=== PATIENT | male | born 1960 | race Caucasian/White ===

== ENCOUNTER 2018-09-13 10:37 | Outpatient (CLI) | payer OTHER, SELFPAY ==
[2018-09-13 11:42] LABS: Hemoglobin A1C 9.7 % (4.5-6.2)
[2018-09-13 12:58] LABS: ALT 142 U/L (12-78); AST 144 U/L (15-37); Alkaline Phosphatase 134 U/L (46-116); Anion Gap 9.4 mmol/L (3-11); BUN 10 mg/dL (7-18); Bilirubin, Total 0.9 mg/dL (0.2-1.0); CO2 29.6 mmol/L (21.0-32.0); CREATININE 0.97 mg/dL (0.70-1.30); Calcium 8.9 mg/dL (8.5-10.1); Chloride 95 mmol/L (98-107); Cholesterol 225 mg/dL (50-200); Glucose 263 mg/dL (70-100); HDL Cholesterol 55 mg/dL (40-60); LDL CHOLESTEROL 142 mg/dL (<100); Sodium 134 mmol/L (136-145); Total Protein 8.5 g/dL (6.4-8.2); Triglyceride 141 mg/dL (30-150)
[2018-09-14 10:37] LABS: Hepatitis C Ab w Rflx HCV PCR Negative (NEGAT)
== END 2018-09-13 10:57 ==
PROVIDERS: PCP Family Medicine; Visit Provider Family Medicine
DX: Z00.00 Encounter for general adult medical examination without abnormal findings (principal); E11.9 Type 2 diabetes mellitus without complications; Z13.220 Encounter for screening for lipoid disorders; Z11.59 Encounter for screening for other viral diseases
CPT/HCPCS: 36415; 80053; 80061; 83721; 86803; 83036

== ENCOUNTER 2018-10-26 02:47 | Emergency (ER) | payer OTHER, SELFPAY ==
[2018-10-26] VITALS (18 sets, daily range): BP systolic 147–173; BP diastolic 74–91; PULSE 76–91; RESP 11–16; TEMP 37.3; O2SAT 93–97
--- NOTE | 2018-10-26 02:48 | W.ED.GENAD ---
Discharge Plan Disposition Patient Disposition: HOME Condition: Stable Discharge Details Chief Complaint: Palpitatns Clinical Impression: Palpitations Primary Care Provider: David Foster ED Provider: Luis Fernández Home Meds and New Rx's Prescriptions: No Action metformin 500 mg tablet 500 mg PO BID Qty: 180 RF: 4 lovastatin 40 mg tablet 40 mg PO DAILY Qty: 90 RF: 4 aspirin [Adult Low Dose Aspirin] 81 mg tablet,delayed release (DR/EC) 81 mg PO DAILY Qty: 90 RF: 4 amlodipine [Norvasc] 5 mg tablet 5 mg PO QAM Qty: 90 RF: 4 benazepril [Lotensin] 20 mg tablet 20 mg PO QAM Qty: 90 RF: 4 Discharge Instructions Instructions: Palpitations (ED) Additional Instructions: Your lab work showed your liver function tests and glucose level were elevated similar as they have in the past. You should let your primary care provider know of this when you follow up and also have your blood pressure when you follow up with your primary care provider. You should follow up with them in 1-2 weeks if you have severe chest pain or difficulty breathing return to the emergency department for reevaluation Medical Decision Making 57 yo male with hx of htn, t2dm, hld, fomer smoker, drinker of 6-8 shots a day per pt, who comes in with chief complaint of feeling as though his heart is skipping beats. HE states he has had this symptom intermittently for a few weeks, and tonight for about 3 horus. Denies any pain, sob, fevers, chills. He denies any hx of cad. HE is in no distress on exam in NSR on the monitor. Given lack of pain doubt acs, heart score is 3 based on age and risk factors, will send troponin and obtain ecg. Given lack of pain, no evidence of dvt, no significant tachycardia doubt entities such as PE or dissection and also has no tearing back pain. Will monitor and eval for electrolyte abnormalities as well pt's labs show no acute changes, has chronic mild elevation of lfts likely from alcohol use and glucose in the 200's, advised he needs to f/u with pcp regarding this and BP initially 170, now 140, I did also recommend he have his BP rechecked by his pcp in 1-2 weeks. Given symptoms over 4 hours do not feel repeat troponin indicated and pain not consistent with acs. He had occasional pac on the tele and was stating during this he felt a skipped beat so I suspect this is what he is feeling. He will f/u with his pcp and return precautions given Differential Diagnosis pvc's, afib, electrolyte abnormalities Lab Data Lab results reviewed: Yes I reviewed the patient's lab results. ECG Data Attestation: I personally reviewed and interpreted this ECG (s) as follows: Prior ECG tracings: not available for review Interpretation: sinus rhythm, rate of 86, pr 176, no acute ischemic findings HPI General Mode of arrival: ambulatory. Date/Time Provider Initiated Documentation: 10/26/18 02:48. Limitations to Documentation: no limitations. Information obtained by: patient. History of Present Illness 57 year old M presents to the emergency department with the chief complaint of feels heart skipping beats, described as mild, with intensity rated at 2. Patient reports no radiation. Patient started experiencing this hour(s) (3) and it has been intermittent. No relieving factors improve symptom(s), No exacerbating factors reported . Patient notes no other symptoms.. Patient did receive the following treatments prior to arrival, none Related Data Home Medications Medication Instructions Recorded Confirmed amlodipine 5 mg tablet 5 mg PO QAM #90 tab-cap 07/15/18 10/26/18 benazepril 20 mg tablet 20 mg PO QAM #90 tab-cap 07/15/18 10/26/18 aspirin 81 mg tablet,delayed 81 mg PO DAILY #90 tab 09/16/18 10/26/18 release lovastatin 40 mg tablet 40 mg PO DAILY #90 tab-cap 09/16/18 10/26/18 metformin 500 mg tablet 500 mg PO BID #180 tab 09/16/18 10/26/18 Previous Rx's Medication Instructions Recorded amlodipine 5 mg tablet 5 mg PO QAM #90 tab-cap 07/15/18 benazepril 20 mg tablet 20 mg PO QAM #90 tab-cap 07/15/18 aspirin 81 mg tablet,delayed 81 mg PO DAILY #90 tab 09/16/18 release lovastatin 40 mg tablet 40 mg PO DAILY #90 tab-cap 09/16/18 metformin 500 mg tablet 500 mg PO BID #180 tab 09/16/18 Allergies Allergy/AdvReac Type Severity Reaction Status Date / Time oxycodone Allergy Intermediate ITCHING Unverified 10/26/18 02:56 Review of Systems Review of Systems All systems reviewed & are unremarkable except as noted in HPI and below Constitutional Denies chills and Denies fever(s) Cardiovascular Denies dyspnea Respiratory Denies cough and Denies dyspnea Gastrointestinal Denies abdominal pain, Denies nausea and Denies vomiting Musculoskeletal Denies joint swelling Integumentary/Breasts Denies rash Endocrine Denies heat intolerance PFSH Surgical History Colonoscopy - MAC LEFT KNEE SURGERY MUSCLE REATTACHMENT Repair of inguinal hernia Family History Mother Essential hypertension Diabetes Father Heart disease Grandfather Diabetes Sister Diabetes Social History caregiver/support person: Yes household members: significant other housing: house pets and animals: No sexually active: Yes do you think of yourself as: straight/heterosexual current gender identity: male what type of physical activity do you participate in: walking frequency: 3-4 times per week duration: 15-30 minutes/day Smoking and Tabacco status: Former Tobacco Use quit status: quit date established second hand exposure: Yes alcohol intake: current alcohol intake frequency: 3 or more drinks per day Alcohol type: beer and hard liquor substance use type: former substance user and marijuana chaparro/yazidi: Religion What is your relationship status?: How often do you talk on the phone with friends or family?: three or more times per week How often do you get together with friends or relatives?: twice per week How often do you attend sabianism or rastafari services?: decline to answer Do you belong to any clubs or organized social groups?: yes Panel score (0-1 are the most socially isolated patients): 2 Exam Const General: no acute distress Orientation: alert HENMT Head: normal to inspection Ears: external ears normal General nose exam: external nose normal Mouth: moist mucous membranes Eyes General: appearance normal, both eyes and all related structures Neck Neck: normal visual inspection Resp Effort & Inspection: normal respiratory effort and able to speak in complete sentences Cardio Rate: regular rate Skin General skin exam: no rashes or lesions noted Neuro General: alert and oriented x3 Extrem General: normal to inspection Psych Mental Status: mental status grossly normal
--- NOTE | 2018-10-26 02:59 | ED.GENADUL_ITS ---
Discharge Plan Disposition Patient Disposition: HOME Condition: Stable Discharge Details Chief Complaint: Palpitatns Clinical Impression: Palpitations Primary Care Provider: David Foster ED Provider: Luis Fernández Home Meds and New Rx's Prescriptions: No Action metformin 500 mg tablet 500 mg PO BID Qty: 180 RF: 4 lovastatin 40 mg tablet 40 mg PO DAILY Qty: 90 RF: 4 aspirin [Adult Low Dose Aspirin] 81 mg tablet,delayed release (DR/EC) 81 mg PO DAILY Qty: 90 RF: 4 amlodipine [Norvasc] 5 mg tablet 5 mg PO QAM Qty: 90 RF: 4 benazepril [Lotensin] 20 mg tablet 20 mg PO QAM Qty: 90 RF: 4 Discharge Instructions Instructions: Palpitations (ED) Additional Instructions: Your lab work showed your liver function tests and glucose level were elevated similar as they have in the past. You should let your primary care provider know of this when you follow up and also have your blood pressure when you follow up with your primary care provider. You should follow up with them in 1-2 weeks if you have severe chest pain or difficulty breathing return to the emergency department for reevaluation Medical Decision Making 57 yo male with hx of htn, t2dm, hld, fomer smoker, drinker of 6-8 shots a day per pt, who comes in with chief complaint of feeling as though his heart is skipping beats. HE states he has had this symptom intermittently for a few weeks, and tonight for about 3 horus. Denies any pain, sob, fevers, chills. He denies any hx of cad. HE is in no distress on exam in NSR on the monitor. Given lack of pain doubt acs, heart score is 3 based on age and risk factors, will send troponin and obtain ecg. Given lack of pain, no evidence of dvt, no significant tachycardia doubt entities such as PE or dissection and also has no tearing back pain. Will monitor and eval for electrolyte abnormalities as well pt's labs show no acute changes, has chronic mild elevation of lfts likely from alcohol use and glucose in the 200's, advised he needs to f/u with pcp regarding this and BP initially 170, now 140, I did also recommend he have his BP rechecked by his pcp in 1-2 weeks. Given symptoms over 4 hours do not feel repeat troponin indicated and pain not consistent with acs. He had occasional pac on the tele and was stating during this he felt a skipped beat so I suspect this is what he is feeling. He will f/u with his pcp and return precautions shakeel cabral Differential Diagnosis pvc's, afib, electrolyte abnormalities Lab Data Lab results reviewed: Yes I reviewed the patient's lab results. ECG Data Attestation: I personally reviewed and interpreted this ECG (s) as follows: Prior ECG tracings: not available for review Interpretation: sinus rhythm, rate of 86, pr 176, no acute ischemic findings HPI General Mode of arrival: ambulatory . Date/Time Provider Initiated Documentation: 10/26/18 02:48 . Limitations to Documentation: no limitations . Information obtained by: patient . History of Present Illness 57 year old M presents to the emergency department with the chief complaint of feels heart skipping beats, described as mild, with intensity rated at 2. Patient reports no radiation. Patient started experiencing this hour(s) (3) and it has been intermittent. No relieving factors improve symptom(s), No exacerbating factors reported . Patient notes no other symptoms.. Patient did receive the following treatments prior to arrival, none Related Data Home Medications Medication Instructions Recorded Confirmed amlodipine 5 mg tablet 5 mg PO QAM #90 tab-cap 07/15/18 10/26/18 benazepril 20 mg tablet 20 mg PO QAM #90 tab-cap 07/15/18 10/26/18 aspirin 81 mg tablet,delayed 81 mg PO DAILY #90 tab 09/16/18 10/26/18 release lovastatin 40 mg tablet 40 mg PO DAILY #90 tab-cap 09/16/18 10/26/18 metformin 500 mg tablet 500 mg PO BID #180 tab 09/16/18 10/26/18 Previous Rx's Medication Instructions Recorded amlodipine 5 mg tablet 5 mg PO QAM #90 tab-cap 07/15/18 benazepril 20 mg tablet 20 mg PO QAM #90 tab-cap 07/15/18 aspirin 81 mg tablet,delayed 81 mg PO DAILY #90 tab 09/16/18 release lovastatin 40 mg tablet 40 mg PO DAILY #90 tab-cap 09/16/18 metformin 500 mg tablet 500 mg PO BID #180 tab 09/16/18 Allergies Allergy/AdvReac Type Severity Reaction Status Date / Time oxycodone Allergy Intermediate ITCHING Unverified 10/26/18 02:56 Review of Systems Review of Systems All systems reviewed & are unremarkable except as noted in HPI and below Constitutional Denies chills and Denies fever(s) Cardiovascular Denies dyspnea Respiratory Denies cough and Denies dyspnea Gastrointestinal Denies abdominal pain, Denies nausea and Denies vomiting Musculoskeletal Denies joint swelling Integumentary/Breasts Denies rash Endocrine Denies heat intolerance PFSH Surgical History Colonoscopy - MAC LEFT KNEE SURGERY MUSCLE REATTACHMENT Repair of inguinal hernia Family History Mother Essential hypertension Diabetes Father Heart disease Grandfather Diabetes Sister Diabetes Social History caregiver/support person: Yes household members: significant other housing: house pets and animals: No sexually active: Yes do you think of yourself as: straight/heterosexual current gender identity: male what type of physical activity do you participate in: walking frequency: 3-4 times per week duration: 15-30 minutes/day Smoking and Tabacco status: Former Tobacco Use quit status: quit date established second hand exposure: Yes alcohol intake: current alcohol intake frequency: 3 or more drinks per day Alcohol type: beer and hard liquor substance use type: former substance user and marijuana chaparro/temple: Voodoo What is your relationship status?: How often do you talk on the phone with friends or family?: three or more times per week How often do you get together with friends or relatives?: twice per week How often do you attend spiritism or congregation services?: decline to answer Do you belong to any clubs or organized social groups?: yes Panel score (0-1 are the most socially isolated patients): 2 Exam Const General: no acute distress Orientation: alert HENMT Head: normal to inspection Ears: external ears normal General nose exam: external nose normal Mouth: moist mucous membranes Eyes General: appearance normal, both eyes and all related structures Neck Neck: normal visual inspection Resp Effort & Inspection: normal respiratory effort and able to speak in complete sentences Cardio Rate: regular rate Skin General skin exam: no rashes or lesions noted Neuro General: alert and oriented x3 Extrem General: normal to inspection Psych Mental Status: mental status grossly normal
[2018-10-26 03:29] LABS: Abs Immature Grans 0.01 k/cumm (0.0-0.09); Absolute Basophil Count 0.04 k/cumm (0.0-0.2); Absolute Eosinophil Count 0.11 k/cumm (0.0-0.7); Absolute Lymphocyte Count 2.88 k/cumm (1.2-3.4); Absolute Monocyte Count 0.61 k/cumm (0.11-0.7); Absolute Neutrophil Count 3.68 k/cumm (1.2-6.7); Basophils % 0.5; Eosinophils % 1.5; HCT 43.2 % (40.0-50.0); HGB 14.8 g/dL (13.5-17.5); Immature Grans % 0.1; Lymphocytes % 39.3; Mean Corp. HGB Concentration 34.3 g/dL (32.0-36.0); Mean Corpuscular Volume 90.4 fL (80-95); Mean Platelet Volume 11.3 fL (8.0-11.0); Monocytes % 8.3; Neutrophils % 50.3; Platelet Count 192 x1000/uL (130-400); RBC 4.78 m/cumm (4.50-6.00); RBC Distribution Width 12.7 % (11.8-14.1); White Blood Cell Count 7.33 k/cumm (4.4-10.8)
[2018-10-26 03:55] LABS: ALT 90 U/L (12-78); AST 111 U/L (15-37); Albumin 3.9 g/dL (3.4-5.0); Alkaline Phosphatase 136 U/L (46-116); Anion Gap 9.3 mmol/L (3-11); BUN 8 mg/dL (7-18); Bilirubin, Total 0.7 mg/dL (0.2-1.0); CO2 28.7 mmol/L (21.0-32.0); Calcium 9.8 mg/dL (8.5-10.1); Chloride 96 mmol/L (98-107); Glucose 267 mg/dL (70-100); Magnesium 1.9 mg/dL (1.8-2.4); Sodium 134 mmol/L (136-145); Total Protein 8.7 g/dL (6.4-8.2)
[2018-10-26 04:04] LABS: ETHANOL BLOOD < 3.0 mg/dL (<3); Troponin I < 0.02 ng/mL (0.00-0.06)
== END 2018-10-26 04:25 | disposition home or self-care (01) ==
PROVIDERS: Emergency Provider Emergency Medicine; PCP Family Medicine
DX: R00.2 Palpitations (principal); E11.9 Type 2 diabetes mellitus without complications; Z79.84 Long term (current) use of oral hypoglycemic drugs; I10 Essential (primary) hypertension
CPT/HCPCS: 36415; 80053; 93005; 99284; 80320; 83735; 84484; 85025; 93010

== ENCOUNTER 2018-11-07 02:06 | Outpatient (CLI) | payer OTHER, SELFPAY ==
--- NOTE | 2018-11-14 10:21 | HOLTER_ITS ---
DATE OF DICTATION: November 14, 2018 HOLTER MONITOR REPORT 48-hour study. Baseline rhythm sinus. Very frequent single PAC. Seven bursts of SVT, longest 3-beat duration, fastest 215 bpm. No atrial fibrillation. Rare single PVC. Rare couplet. Rare triplet. No VT. No bradycardia. No symptoms. Average heart rate 95 bpm, range 67-156 bpm.
== END 2018-11-07 02:26 ==
PROVIDERS: PCP Family Medicine; Visit Provider Family Medicine
DX: R00.2 Palpitations (principal); I49.1 Atrial premature depolarization; I47.1 Supraventricular tachycardia
CPT/HCPCS: 93225

== ENCOUNTER 2018-11-11 16:31 | Outpatient (CLI) | payer OTHER, SELFPAY | END 2018-11-11 16:51 | PROVIDERS: PCP Family Medicine; Visit Provider Family Medicine | DX: R00.2 Palpitations (principal); I49.1 Atrial premature depolarization; I47.1 Supraventricular tachycardia | CPT/HCPCS: 93226 ==

== ENCOUNTER 2018-12-14 11:18 | Outpatient (CLI) | payer OTHER, SELFPAY ==
[2018-12-14 12:36] LABS: Hemoglobin A1C 9.2 % (4.5-6.2)
== END 2018-12-14 11:38 ==
PROVIDERS: PCP Family Medicine; Visit Provider Family Medicine
DX: E11.9 Type 2 diabetes mellitus without complications (principal)
CPT/HCPCS: 36415; 83036

== ENCOUNTER 2018-12-23 02:18 | Outpatient (CLI) | payer OTHER, SELFPAY ==
--- NOTE | 2018-12-23 14:03 | DIABASSESS_ITS ---
DESCRIPTION/ASSESSMENT: Raymond Walker presents for medical nutrition therapy for diabetes. He was diagnosed 1 1/2 years ago but last A1c 9.7 now at 9.2. Strong family history of diabetes. Food - Javy has cut back on all food eating 1/2 portions and attempting to avoid sugar. He is not sure what to eat. States he lost 14 pounds over the past year. 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 He admits to inactivity evenings and weekends because of the weather. Will increase activity when the weather improves. He also has a plan to get weights upstairs to begin lifting them again. States he drinks 4-6 alcoholic beverages daily. Medication - Metformin just doubled. No other diabetes medications. Monitoring - fasting some days in the 150s. He tested 1 hour after 1 serving chicken noodle soup with blood sugar 235mg/dl Coping - denies depression symptoms but admits to high stress with work that affects his quality of life. INTERVENTION: Discussed early, intensive intervention for best manager terminal results. Explained A1c goal of less than 7. Reviewed diabetes food guide. He cannot go without carbohydrate and discussed keeping it below 100g/day. Reviewed lower glycemic index food choices. Discussed physical activity. Discussed intention to get weights upstairs and physical activity being his new intervention to decrease blood sugar. Medication discussed and he wishes to see what Metformin will do with lifestyle changes. Monitoring - suggested he monitor before each meal and bedtime over the weekend to see what different foods impact blood sugar. Stress management - states he is doing everything he can and there is nothing that will make it better. States it has gotten a little better since he is letting some of it go. He also states he wakes up a couple times every night. ACTION PLAN: He will look at carbohydrate at meals attempting 30 grams per meal Monitor this weekend before each meal and bedtime get out his weights We will follow up by telephone in next 2 weeks. Individual MNT ___4_ units billed TIME IN: OUT: No DM group education series being offered at this time.
== END 2018-12-23 02:38 ==
PROVIDERS: PCP Family Medicine; Visit Provider Dietitian, Registered
DX: E11.9 Type 2 diabetes mellitus without complications (principal); Z79.84 Long term (current) use of oral hypoglycemic drugs; Z71.3 Dietary counseling and surveillance
CPT/HCPCS: 97802

== ENCOUNTER 2019-03-07 08:53 | Outpatient (CLI) | payer OTHER, SELFPAY | END 2019-03-07 09:13 | PROVIDERS: PCP Family Medicine; Visit Provider Family Medicine | DX: R69 Illness, unspecified (principal) ==

== ENCOUNTER 2020-01-05 01:33 | Outpatient (CLI) | payer OTHER, SELFPAY ==
[2020-01-05 10:41] LABS: Hemoglobin A1C 6.1 % (3.8-5.6)
[2020-01-05 11:36] LABS: ALT 37 U/L (16-63); AST 28 U/L (15-37); Albumin 4.4 g/dL (3.4-5.0); Alkaline Phosphatase 102 U/L (46-116); Anion Gap 7.5 mmol/L (3-11); BUN 12 mg/dL (7-18); Bilirubin, Total 0.6 mg/dL (0.2-1.0); CO2 29.5 mmol/L (21.0-32.0); CREATININE 0.91 mg/dL (0.70-1.30); Calcium 9.8 mg/dL (8.5-10.1); Chloride 99 mmol/L (98-107); Glucose 67 mg/dL (74-106); Sodium 136 mmol/L (136-145); Total Protein 8.6 g/dL (6.4-8.2)
== END 2020-01-05 01:53 ==
PROVIDERS: PCP Family Medicine; Visit Provider Family Medicine
DX: E11.9 Type 2 diabetes mellitus without complications (principal); I10 Essential (primary) hypertension; Z00.00 Encounter for general adult medical examination without abnormal findings
CPT/HCPCS: 36415; 80053; 83036

== ENCOUNTER 2020-09-12 02:56 | Outpatient (CLI) | payer MEDICAID, SELFPAY ==
--- NOTE | 2020-09-12 06:45 | DI.RAD_ITS ---
EXAM: XR SHOULDER LT COMPLETE 2+V CLINICAL HISTORY: left shoulder pain,M25.512. TECHNIQUE: 2D digital imaging was performed. COMPARISON: No exams were available for comparison FINDINGS: Moderate hypertrophic changes are seen at the acromioclavicular joint consistent with arthritis. The glenohumeral joint is well maintained. The bones are intact and normally mineralized. The soft tis sues are unremarkable. IMPRESSION: Moderate degenerative changes of the left AC joint. DATA REPOSITORY: RADIATION DOSE DELIVERED:
== END 2020-09-12 03:16 ==
PROVIDERS: PCP Family Medicine; Visit Provider Family Medicine
DX: M19.012 Primary osteoarthritis, left shoulder (principal)
CPT/HCPCS: 73030

== ENCOUNTER 2020-11-29 03:23 | Outpatient (CLI) | payer MEDICAID, SELFPAY ==
--- NOTE | 2020-11-29 06:45 | DI.MRI_ITS ---
EXAM: MR UPPER JOINT LT WO CLINICAL HISTORY: PAIN,ARTHRITIS LT AC JOINT,LT BICEPS TENDONITIS,IMPINGEMENT SYNDROME,. TECHNIQUE: Multiplanar multisequence MRI was performed. COMPARISON: CR XR SHOULDER LT COMPLETE 2+V from 09/12/2020 FINDINGS: BONES: There is no fracture or contusion pattern. JOINTS: Moderate hypertrophic changes are seen at the acromioclavicular joint. The glenohumeral join t is normal. No glenohumeral joint effusion. TENDONS: Supraspinatus: Hyperintense signal is seen at the supraspinatus tendon at its insertion site anterior ly consistent with a tear. There is also hyperintense signal seen in the proximal tendons suggestive of a tear. Infraspinatus: Unremarkable. Subscapularis: There is hyperintense signal seen in the subscapularis tendon at its insertion suspici ous for partial tear. Teres Minor: Unremarkable. Biceps and Hampton: Unremarkable. MUSCLES: Unremarkable. GLENOID LABRUM: Unremarkable on this noncontrast examination. SOFT TISSUES: Unremarkable. LIGAMENTS: Unremarkable. OTHER: Subacromial and subdeltoid bursae are unremarkable. IMPRESSION: 1. Findings consistent with a partial supraspinatus tear. 2. Findings of a partial tear of the subscapularis tendon. 3. Moderate degenerative changes of the acromioclavicular joint. DATA REPOSITORY:
== END 2020-11-29 03:43 ==
PROVIDERS: PCP Family Medicine; Visit Provider Student in an Organized Health Care Education/Training Program
DX: M25.512 Pain in left shoulder (principal); M75.112 Incomplete rotator cuff tear or rupture of left shoulder, not specified as traumatic; S46.892A Other injury of other muscles, fascia and tendons at shoulder and upper arm level, left arm, initial encounter; M19.012 Primary osteoarthritis, left shoulder; M75.22 Bicipital tendinitis, left shoulder; M75.42 Impingement syndrome of left shoulder
CPT/HCPCS: 73221

== ENCOUNTER 2021-01-24 00:33 | Outpatient (CLI) | payer MEDICAID, SELFPAY ==
[2021-01-24 12:54] LABS: CREATININE 0.9 mg/dL (0.70-1.30); Calculated LDL 107 mg/dL (<100); Cholesterol 173 mg/dL (<200); HDL Cholesterol 41 mg/dL (40-60); Potassium 4.2 mmol/L (3.5-5.1); Triglyceride 127 mg/dL (<150)
[2021-01-24 13:02] LABS: Hemoglobin A1C 7.1 % (<5.7)
== END 2021-01-24 00:34 | disposition home or self-care (01) ==
LOC: LOS 00:34
PROVIDERS: PCP Family Medicine; Visit Provider Family Medicine
DX: E11.65 Type 2 diabetes mellitus with hyperglycemia (principal); E78.5 Hyperlipidemia, unspecified; I10 Essential (primary) hypertension
CPT/HCPCS: 36415; 80061; 82565; 83036; 84132

== ENCOUNTER 2021-02-05 07:22 | Outpatient (CLI) | payer MEDICAID, SELFPAY ==
[2021-02-05 17:17] LABS: PSA, Screening 0.6 ng/mL (0.0-4.5)
[2021-02-06 11:15] LABS: Lyme Ab w Rflx to Lyme Confirm Negative (Negative)
== END 2021-02-05 07:23 | disposition home or self-care (01) ==
LOC: LOS 07:29
PROVIDERS: PCP Family Medicine; Visit Provider Family Medicine
DX: Z12.5 Encounter for screening for malignant neoplasm of prostate (principal); M25.512 Pain in left shoulder
CPT/HCPCS: 36415; 84153; 86618

== ENCOUNTER 2021-02-05 18:12 | Outpatient (CLI) | payer MEDICAID, SELFPAY ==
--- NOTE | 2021-02-05 09:28 | DI.RAD_ITS ---
Exam(s) XR CERVICAL SPINE COMP 4-5V EXAM: XR CERVICAL SPINE COMP 4-5V CLINICAL HISTORY: neck pain with arm symptoms,M54.2. TECHNIQUE: 2D digital imaging was performed. COMPARISON: No exams were available for comparison FINDINGS: There is no evidence of fracture or listhesis nor offset of the spinal laminar line. Chronic disc sp wilman narrowing at C5-6 and C6-7 levels are noted. Prominent anterior osteophytes at C5-6. On the obl ique views there are prominent bilateral Luschka joint osteophytes at both C5-6 and C6-7 levels. Marichuy ral foraminal narrowing at both these levels bilaterally noted. There are no cervical ribs. Multile shad degenerative changes in the facet joints noted. IMPRESSION: Chronic degenerative disc disease in the lower cervical spine. Also prominent bilateral Luschka join t osteophytes at the lower 2 levels with bilateral foraminal stenosis. DATA REPOSITORY: RADIATION DOSE DELIVERED:
== END 2021-02-05 18:32 ==
PROVIDERS: PCP Family Medicine; Visit Provider Family Medicine
DX: M48.02 Spinal stenosis, cervical region (principal); M50.322 Other cervical disc degeneration at C5-C6 level; M25.78 Osteophyte, vertebrae
CPT/HCPCS: 72050

== ENCOUNTER 2021-02-12 09:19 | Outpatient (REF) | payer MEDICAID, SELFPAY ==
--- NOTE | 2021-02-12 08:45 | TONG_PTH ---
PATIENT: Raymond Walker JR LOC: [facility] U#:[id number] AGE/SX: 60/M ROOM: RE02/12/[address]: ASHLEY Neville : 1960 BED: DIS: 02/12/2021 SPEC #: [id number] RECD: 02/12/21 17:51 STATUS: COREY REQ #: [id number] SHANNAN: 02/12/21 08:[address]: Fer Soares DEPT: Surgical Specimen RECD BY: Soraya Calabrese ENTERED: 02/12/21 17:52 SP TYPE: JAMA MARCOS DR: Constantin Nair MD Tissues: 1 - TONSIL BIOPSY Procedures: GROSS AND MICRO LEVEL 4 Comments: [id number]
== END 2021-02-12 09:20 | disposition home or self-care (01) ==
LOC: LBN 09:19
PROVIDERS: PCP Family Medicine; Visit Provider Physician Assistant
DX: K14.8 Other diseases of tongue; F17.228 Nicotine dependence, chewing tobacco, with other nicotine-induced disorders
CPT/HCPCS: 88305

== ENCOUNTER 2021-02-19 01:27 | Outpatient (CLI) | payer MEDICAID, SELFPAY ==
--- NOTE | 2021-02-19 07:15 | DI.MRI_ITS ---
Exam(s) MR CERVICAL SPINE WO EXAM: MR CERVICAL SPINE WO CLINICAL HISTORY: neck pain with rt arm radicular pain, M54.2 TECHNIQUE: Multiplanar multisequence MRI of the cervical spine was performed without intravenous con trast. COMPARISON: CR XR CERVICAL SPINE COMP 4-5V from 02/05/2021 CR XR CERVICAL SPINE COMP 4-5V from 02/05/2021 FINDINGS: CERVICOMEDULLARY JUNCTION: Intact with no evidence of cerebellar tonsillar ectopia. No obvious abnor mality of the odontoid process. No evidence of Chiari 1 malformation. CERVICAL SPINAL CORD: There is no abnormal signal in the cervical spinal cord and no evidence of foca l cord atrophy nor focal cord swelling. OSSEOUS:There are no cervical fractures evident. No significant osseous lesions in the cervical vert ebrae. There is slight reversal of the normal cervical curvature, this finding similar to the recent plain films of 02/06/2020 INDIVIDUAL LEVELS: C2-3: No disc herniation nor central canal stenosis. No foraminal stenosis. No facet arthropathy. C3-4: Preserved disc height. However, there is mild symmetrical annular bulging without a dominant d isc herniation at this level.There is moderate bilateral facet arthropathy. Also small bilateral Denice chka joint osteophytes. Mild bilateral foraminal stenosis. No true central canal stenosis. C4-5: Normal disc height and signal. No disc herniation. No central canal stenosis. No foraminal s tenosis. No prominent facet arthropathy C5-6: This level exhibits moderate disc space narrowing and anterior osteophytes. Posteriorly broad annula r bulging without a distinct disc herniation. There are bilateral Luschka joint osteophytes at this l evel which are causing mild spinal canal stenosis bilaterally. The bulging annulus sys flattens the a nterior thecal sac but not the spinal cord. Central canal dimensions are lower normal. C6-7: Moderate-advanced disc space narrowing also evident at this level and small anterior osteophyte s. Posteriorly there are bilateral disc-osteophyte complexes which results in an element of bilatera l neural foraminal stenosis, this being more prominent on the left side . on the left side there is a disc protrusion associated with the Luschka joint osteophyte at the level of the exiting left neural foramen; smaller similar findings in the right side. Central canal dimensions are lower normal at t his level. C7-T1: No disc herniation nor central canal stenosis. Mild facet arthropathyno foraminal stenosis. IMPRESSION: 1. Findings at C3-4, C 5-6, and C6-7 levels as described individually above. 2. There is no prominent central spinal canal stenosis. Main findings here are related to bilateral foraminal stenosis, as described above. The cervical spinal cord itself appears unremarkable and the re is no evidence of Chiari malformation/cerebellar tonsillar ectopia. 3. Reversal of the normal curvature of the cervical spine is noted which is due to chronic muscle spa sm DATA REPOSITORY:
== END 2021-02-19 01:47 ==
PROVIDERS: PCP Family Medicine; Visit Provider Family Medicine
DX: M48.03 Spinal stenosis, cervicothoracic region (principal); M62.838 Other muscle spasm
CPT/HCPCS: 72141

== ENCOUNTER 2021-05-02 10:24 | Outpatient (CLI) | payer MEDICAID, SELFPAY ==
--- NOTE | 2021-05-02 10:15 | RT.EKG_ITS ---
APPROVED REPORT Exam: Resting ECG Reason for Exam: pre op Patient Location: O HR:74 bpm ECG Measurements Heart Rate 74 AXIS MN 177 P 62 QRSd 98 QRS 5 QT 410 T 40 QTc 456 Conclusion Sinus rhythm...normal P axis, V-rate 60- 99
== END 2021-05-02 10:25 | disposition home or self-care (01) ==
LOC: DI.CM 10:25
PROVIDERS: PCP Family Medicine; Visit Provider Family Medicine
DX: Z01.818 Encounter for other preprocedural examination (principal)
CPT/HCPCS: 93010

== ENCOUNTER 2021-05-23 09:11 | Outpatient (REF) | payer MEDICAID, SELFPAY ==
[2021-05-24 01:29] LABS: COVID-19 RT-PCR UVMMC Result Negative (Negative)
== END 2021-05-23 09:12 | disposition home or self-care (01) ==
LOC: LBN 09:11
PROVIDERS: PCP Family Medicine; Visit Provider Nurse Practitioner Family
DX: Z20.822 Contact with and (suspected) exposure to COVID-19 (principal); Z01.818 Encounter for other preprocedural examination
CPT/HCPCS: 87635; U0003

== ENCOUNTER 2021-06-27 02:20 | Outpatient (CLI) | payer MEDICAID, SELFPAY ==
--- NOTE | 2021-06-27 09:18 | DI.RAD_ITS ---
Exam(s) XR CERVICAL SPINE 1V EXAM: XR CERVICAL SPINE 1V CLINICAL HISTORY: S/P CERVICAL SPINAL FUSION Z98.1. TECHNIQUE: 2D digital imaging was performed. Lateral view only COMPARISON: CR XR CERVICAL SPINE COMP 4-5V from 02/05/2021 CR XR CERVICAL SPINE COMP 4-5V from 02/05/2021 MR MR CERVICAL SPINE WO from 02/19/2021 FINDINGS: There has been interval anterior fusion from C5 through C7. Stable degenerative changes are seen at the more superior levels. No prevertebral soft tissue swelling. IMPRESSION: Status post anterior fusion C5 through C7. DATA REPOSITORY: RADIATION DOSE DELIVERED:
== END 2021-06-27 02:40 ==
PROVIDERS: PCP Family Medicine; Visit Provider Physician Assistant Medical
DX: M54.2 Cervicalgia (principal); Z98.1 Arthrodesis status
CPT/HCPCS: 72020

== ENCOUNTER 2021-08-20 00:15 | Outpatient (CLI) | payer MEDICAID, SELFPAY ==
--- NOTE | 2021-08-20 | DI.RAD_ITS ---
Exam(s) XR CERVICAL SP ARROYO TRAUMA 2-3V EXAM: XR CERVICAL SP ARROYO TRAUMA 2-3V CLINICAL HISTORY: S/P CERVICAL SPINAL FUSION Z98.1. TECHNIQUE: 2D digital imaging was performed. COMPARISON: CR XR CERVICAL SPINE 1V from 06/27/2021 FINDINGS: Again noted is evidence of previous surgery with anterior fusion plate at B3N0-3-4 levels and interve rtebral disc space divide ower XXXX at these levels. There is no evidence of fracture or significant listhesis. Hardware appears intact. Disc space 1 level above the fusion exhibits normal height. N o listhesis. No facet malalignment No osseous lesions. No offset of the spinal laminar line. Degenerative facet arthropathy noted, mos t evident at C2-3 level. IMPRESSION: DATA REPOSITORY: RADIATION DOSE DELIVERED:
== END 2021-08-20 00:35 ==
PROVIDERS: PCP Family Medicine; Visit Provider Neurological Surgery
DX: Z98.1 Arthrodesis status (principal); Z98.890 Other specified postprocedural states
CPT/HCPCS: 72040

== ENCOUNTER → 2021-09-24 09:46 | Outpatient (CLI) | payer MEDICAID, SELFPAY ==
--- NOTE | 2021-09-24 07:45 | DI.RAD_ITS ---
Exam(s) XR SACRUM COCCYX EXAM: XR SACRUM COCCYX CLINICAL HISTORY: coccyx pain,m53.3. TECHNIQUE: 2D digital imaging was performed. COMPARISON: No exams were available for comparison FINDINGS: BONES: No acute fracture is present. No bony destructive lesion is seen. No abnormalities seen invol ving the coccyx. JOINTS: No dislocation present. Minimal spurring and sclerosis at the SI joints, within normal limits for age. Hip joint spaces are well maintained. SOFT TISSUE: Metallic coils related to hernia repair. IMPRESSION: Unremarkable radiographs of the sacrum and coccyx. DATA REPOSITORY: RADIATION DOSE DELIVERED:
== END ==
PROVIDERS: PCP Family Medicine; Visit Provider Family Medicine
DX: M53.3 Sacrococcygeal disorders, not elsewhere classified (principal)
CPT/HCPCS: 72220

== ENCOUNTER 2022-03-04 02:39 | Outpatient (CLI) | payer MEDICAID, SELFPAY ==
[2022-03-04 16:34] LABS: CREATININE 1.3 mg/dL (0.70-1.30); Calculated LDL 54 mg/dL (<100); Cholesterol 161 mg/dL (<200); Estimated GFR 55.94 (mL/min/1.73m2); HDL Cholesterol 35 mg/dL (40-60); Potassium 4.1 mmol/L (3.5-5.1); Triglyceride 361 mg/dL (<150)
[2022-03-04 22:38] LABS: PSA, Screening 0.8 ng/mL (<=4.5)
== END 2022-03-04 02:40 | disposition home or self-care (01) ==
LOC: LBO 02:39
PROVIDERS: PCP Family Medicine; Visit Provider Family Medicine
DX: I10 Essential (primary) hypertension (principal); E78.5 Hyperlipidemia, unspecified; Z12.5 Encounter for screening for malignant neoplasm of prostate
CPT/HCPCS: 36415; 80061; 84153; 82565; 84132

== ENCOUNTER 2022-04-01 08:13 | Day surgery (SDC) | payer MEDICAID, SELFPAY ==
--- NOTE | 2022-04-01 06:35 | W.ANESPRE ---
General Info Date of Service Date Performed: 04/01/22 Height: 5 ft 9 in Weight: 88.451 kg Body Mass Index (BMI): 28.8 Surgical Procedure: Operation Date: 04/01/22 09:50 Proposed Procedure Side Surgeon flower Freire MD Meds Allergies and Home Medications Allergies Allergy/AdvReac Type Severity Reaction Status Date / Time oxycodone Allergy Intermediate ITCHING Verified 04/01/22 08:38 Home Medication Medication Instructions Recorded blood-glucose meter (OneTouch #1 ea 03/10/19 Ultra2 Meter kit) lancets 33 gauge (OneTouch Delica #100 ea 03/10/19 Lancets) sildenafil (pulm.hypertension) 20 20 - 100 mg PO DAILY PRN sexual 10/10/21 mg tablet activity #30 tabs metformin 500 mg tablet 1,000 mg PO BID #360 tabs 11/05/21 amlodipine 5 mg tablet (Norvasc) 10 mg PO QAM #90 tab-caps 11/22/21 benazepril 20 mg tablet (Lotensin) 20 mg PO QAM #90 tab-caps 11/22/21 lovastatin 40 mg tablet 40 mg PO DAILY #90 tab-caps 11/22/21 blood sugar diagnostic #100 ea 12/12/21 gabapentin 600 mg tablet 600 mg PO TID #90 tabs 12/24/21 tadalafil 20 mg tablet 20 mg PO DAILY PRN sexual activity 02/05/22 #10 tabs bisacodyl 5 mg tablet,delayed 5 mg PO ONCE #4 tabs 03/19/22 release (Dulcolax (bisacodyl)) hydrochlorothiazide 12.5 mg tablet 6.25 mg PO DAILY 03/19/22 polyethylene glycol 3350 17 17 g PO ONCE #238 grams 03/19/22 gram/dose oral powder Current Visit Medications: Current Medications Generic Name Dose Route Start Last Admin Trade Name Freq PRN Reason Stop Dose Admin Ringer's Solution 1,000 mls @ 80 mls/hr 04/01/22 06:00 IV 04/30/22 23:59 INFUSION AKI IV Miscellaneous Supplies 1 each 04/01/22 06:00 Iv Access IV 04/30/22 23:59 DIRECTED AKI Sodium Chloride 0 ml 04/01/22 06:00 Normal Saline Flush 10 Ml Syr IV 04/30/22 23:59 PRN PRN Sodium Chloride 0 ml 04/01/22 06:00 Normal Saline 10 Ml Vial IJ 04/30/22 23:59 DIRECTED PRN Sterile Water 0 ml 04/01/22 06:00 Water,Injection,Sterile 10 Ml Vial IJ 04/30/22 23:59 DIRECTED PRN PFSH Active Problems Active Problems: Problem Status Onset Code Polyp of colon K63.5 History of tobacco use Z87.891 History of alcohol abuse Z87.898 Abnormal LFTs R94.5 Type 2 diabetes mellitus E11.9 Screening for colon cancer Z12.11 Medical History Medical History Acute meniscal tear, lateral left Arthritis of left acromioclavicular joint Biceps tendonitis on left Chronic diffuse otitis externa of both ears (05/28/17) Coccyx pain Color vision deficiency Erectile dysfunction Essential hypertension Hyperlipemia Impingement syndrome of left shoulder Left shoulder pain Neck pain Nevus, non-neoplastic Oral mucosal lesion Paresthesia of both feet Prostatitis Tongue lesion Traumatic rupture of biceps tendon s/p repair (right) Surgical History Surgical History Colonoscopy - MAC 01/29/12 H/O colonoscopy Hx of neck surgery triple fusion c5, c6,c7. LEFT KNEE SURGERY MUSCLE REATTACHMENT repair of severed right biceps Repair of inguinal hernia Status post inguinal hernia repair Status post knee surgery Tobacco Smoking/Tobacco Use Status: Current every day Tobacco Type: cigars and smokeless tobacco Smokeless tobacco user: chewing tobacco Second hand exposure: Yes Alcohol Alcohol Intake: former Substance Use Substance use: Never Substance use type: does not use Vital Signs and Lab Results Vital Signs Most Recent Vital Signs in EMR: Temp Pulse Resp BP Pulse Ox 36.5 C 58 L 17 122/86 98 04/01/22 08:29 04/01/22 08:29 04/01/22 08:29 04/01/22 08:29 04/01/22 08:29 Lab Results Blood Type / Crossmatch: No Data to Display Complete Blood Count: No Data to Display Complete Metabolic Panel: Potassium Level 4.1 mmol/L (3.5-5.1) 03/04/22 15:25 Creatinine 1.3 mg/dL (0.70-1.30) 03/04/22 15:25 Estimated GFR/1.73 m2 55.94 (mL/min/1.73m2) 03/04/22 15:25 Liver Function Panel: No Data to Display Coagulation Panel: No Data to Display Cardiac Panel: No Data to Display Arterial Blood Gas: No Data to Display Venous Blood Gas: No Data to Display Pancreas Panel: No Data to Display Thyroid Panel: No Data to Display Infectious Disease: No Data to Display Blood Cultures: No Data to Display Toxicology Panel: No Data to Display Imaging and Studies Imaging and Studies Study information below may be from another EMR and interpreted by another provider. Please see original notes in EMR for more complete details. EKG Summary: 2020: sinus. Anesthesia Assessment and Plan Anesthesia History Personal History: No History of Anesthesia Complications Family History: No Family History of Anesthesia Complications Exercise Tolerance Exercise Tolerance: Metabolic Equivalents>4 Cardiac & Pulmonary Exam Cardiac Exam: Normal S1/S2 Heart Sounds Pulmonary Exam: Clear Bilateral Breath Sounds Implantable Cardiac Device Does patient have a Pacemaker or an ICD?: No Airway Exam Known Difficult Airway: No Mallampati Class: 2 Mouth Opening: Normal (> 3cm) Thyromental Distance: Greater than 3 cm Neck Range of Motion: Limited ROM Neck Circumference: Normal Teeth Condition: Normal Dentition ASA Classification ASA Score: ASA 2 Emergency Case?: No NPO Status NPO Status: NPO Clears >2 hours, Solids >8 hours Anesthesia Plan Resuscitation Status: Full Code Anesthesia Technique: General Anesthesia Airway Planned: Natural Airway Monitors Used: Standard Monitors Preoperative Comments:: 61 yo male with history of polyps for colo. Sig PMHx: HTN, C5-6-7 discectomy/fusion (still occasionally numb with right hand)
--- NOTE | 2022-04-01 06:52 | W.COLOREPORT ---
Colonoscopy Report Date of procedure: 04/01/22 Pre-op diagnosis general: Colon Cancer Screening and polyps Post-op diagnosis procedure note: same Procedure: Colonoscopy Surgeon: Leti Freire Anesthesia Type: General:No Airway Estimated blood loss (mL): 0 Pathology: none sent Complications: None Disposition: same day Indications: The patient is here for Colonoscopy pre-op.?His last screening was in 2011, which was remarkable for hyperplastic polyps.?He has no family history of colon cancer. He has not had any bowel habit changes. -Discussed colonoscopy bowel prep as well as the procedure. Discussed possible complications of the procedure to include bleeding, pain, perforation, missed small lesion/polyp, sore throat, aspiration and adverse reaction to the medications. Questions were answered to patient?s satisfaction. No guarantees were implied or given.? Prep: Miralax/Dulcolax Procedure Start Time: 11:19 Procedure End Time: 11:39 Retraction Time: 7 minutes Findings: Mild diverticulosis Procedure Description: After informed consent was obtained the patient was taken to the procedure room and placed in a left decubitous position. Monitors were applied and a time out was done. The patients name, date of , procedure, allergies to medications and metal in their body was reviewed. The patient was then sedated. Once sedated and comfortable a rectal exam was done. External exam was normal. Internal exam revealed a normal sphincter tone and no palpable masses. The prostate felt smooth. The scope was then introduced and retro-flexed. No internal hemorrhoids, polyps or masses were identified on retro-flexion. The scope was then advanced to the cecum without difficulty. The ileocecal vlave and appendiceal orifice were identified. The prep was good. The scope was then slowly retracted over 7 minutes back into the rectum. There were no polyps. There was mild sigmoid diverticulosis noted. The scope was removed and the patient was woken up and taken back to Same day surgery in stable condition. The patient tolerated the procedure well and there were no immediate complications. Follow up: The patient should follow up in 10 years unless they develop changes in bowel habits or other new gastrointestinal complaints.
--- NOTE | 2022-04-01 06:55 | W.PM.DSUDISC ---
Discharge Plan Disposition Patient Disposition: HOME Condition: Good Discharge Details Reason For Visit: colonoscopy Attending Provider: Leti Freire Primary Care Provider: Constantin Nair Home Meds and New Rx's Prescriptions: Continued tadalafil 20 mg tablet 20 mg PO DAILY PRN (Reason: sexual activity) Qty: 10 3RF Rx Instructions: administer approximately 30min before sexual activity; do not use more than 1 dose per 24hrs hydrochlorothiazide 12.5 mg tablet 6.25 mg PO DAILY (DME) blood-glucose meter [[employer]Touch Ultra2 Meter] Kit See Rx Instructions .ROUTE .MEDSUPPLY Qty: 1 0RF Rx Instructions: Use daily to check blood sugar (DME) lancets [[employer]Touch Delica Lancets] 33 gauge misc See Rx Instructions .ROUTE DAILY Qty: 100 4RF Rx Instructions: One each daily sildenafil (pulm.hypertension) 20 mg tablet 20 - 100 mg PO DAILY PRN (Reason: sexual activity) Qty: 30 5RF metformin 500 mg tablet 1,000 mg PO BID Qty: 360 3RF amlodipine [Norvasc] 5 mg tablet 10 mg PO QAM Qty: 90 4RF Rx Instructions: dose increase 09/23/2021 benazepril [Lotensin] 20 mg tablet 20 mg PO QAM Qty: 90 4RF lovastatin 40 mg tablet 40 mg PO DAILY Qty: 90 4RF (DME) blood sugar diagnostic Strip See Rx Instructions .ROUTE .MEDSUPPLY Qty: 100 4RF Rx Instructions: test once/day gabapentin 600 mg tablet 600 mg PO TID Qty: 90 2RF Discontinued bisacodyl [Dulcolax (bisacodyl)] 5 mg tablet,delayed release (DR/EC) 5 mg PO ONCE Qty: 4 0RF Rx Instructions: Take according to provider's instructions for colonoscopy prep. polyethylene glycol 3350 17 gram/dose powder 17 g PO ONCE Qty: 238 0RF Rx Instructions: To be taken as directed by prescriber's office for colonoscopy prep. Discharge Instructions Instructions: Diverticulosis (DC) Additional Instructions: Findings: mild diverticulosis Follow up: 10 years Please call if you develop: fevers >101.5 Nausea or Vomiting Abdominal pain that is not transient Rectal bleeding that is more then a tbsp A hard abdomen and inability to pass gas DAY SURGERY UNIT POST ENDOSCOPY INSTRUCTIONS Instructions for everyone who is given Anesthesia: For your safety, please do the following for the next 24 Hours: a. Do not drive or operate dangerous equipment b. Do not drink alcohol beverages or use any recreational drugs for the first 24 hours or while taking pain medications. The medications in your body may have a reaction that can be dangerous. c. Do not make any important decisions or sign any important papers 1. Generally there are no restrictions on your activity after a day or so has gone by, but you may feel a bit fatigued for a few days. 2. After you arrive home you may have a light meal and return to a normal diet as you can tolerate it without feeling sick to your stomach. 3. After surgery, you may feel pain or discomfort. This should be only transient, but if it persists please contact your doctor. 4. If there are any questions regarding the findings of your procedure, please feel free to contact your doctor. 6. If you are unable to contact your doctor with a problem, contact the hospital at [phone]. 7. Continue all your regular medications unless directed otherwise. I understand the above instructions and have no questions. Signature of Patient or Responsible Adult Escort Date/Time Name of Responsible Adult Escort Signature of Nurse Date/Time Activity:: Activity as Tolerated Diet:: high fiber Discharge Orders Discharge Orders: Discharge Order (Routine); Ordered 04/01/22 Ordered By: Leti Freire
[2022-04-01 08:29] VITALS: BP 122/86; PULSE 58; RESP 17; TEMP 36.5; O2SAT 98
[2022-04-01] MEDS: Lactated Ringers 1,000 ML 80 ML IV (08:53)
[2022-04-01 10:50] VITALS: BMI 28.8
[2022-04-01 11:47] VITALS: BP 104/79; PULSE 62; RESP 16; TEMP 36.2; O2SAT 93
[2022-04-01 12:13] VITALS: BP 126/81; PULSE 75; RESP 16; TEMP 36.5; O2SAT 98
--- NOTE | 2022-04-01 12:23 | W.ANESPOSTOP ---
Postoperative Evaluation Date, Time and Location Date Performed: 04/01/22 Time Performed: 11:47 Patient Location: Day Surgery Unit Vital Signs Most Recent Imported Vital Signs: Most Recent Vital Signs Temp Pulse Resp BP Pulse Ox 36.2 C L 62 16 104/79 93 04/01/22 11:47 04/01/22 11:47 04/01/22 11:47 04/01/22 11:47 04/01/22 11:47 Pain Score Most Recent Pain Score: Most Recent Pain Score Pain Level 0 04/01/22 11:47 Assessment Mental Status: Awake (Alert & Oriented to Patient Baseline) Airway and Respiratory Function: Patent airway with normal (patient baseline) respiratory exam Cardiovascular Function: Hemodynamically Stable Hydration Status: Adequately Hydrated Nausea & Vomiting: No Nausea or Vomiting Pain: Pt. Denies Any Pain Peripheral Nerve Block: Patient did not receive a nerve block
== END 2022-04-01 12:25 | disposition home or self-care (01) ==
PROVIDERS: PCP Family Medicine; Visit Provider Surgery
PROC: 0DJD8ZZ Inspection of Lower Intestinal Tract, Via Natural or Artificial Opening Endoscopic (ICD-10-PCS; CPT 45378; principal; 2022-04-01 09:45)
DX: Z12.11 Encounter for screening for malignant neoplasm of colon (principal); K57.30 Diverticulosis of large intestine without perforation or abscess without bleeding; Z86.010 Personal history of colon polyps
CPT/HCPCS: 45378

== ENCOUNTER 2023-03-15 04:43 | Outpatient (CLI) | payer MEDICAID, SELFPAY ==
[2023-03-15 17:10] LABS: CREATININE 0.9 mg/dL (0.70-1.30); Calculated LDL 68 mg/dL (<100); Cholesterol 136 mg/dL (<200); Estimated GFR 95.97 (mL/min/1.73m2); HDL Cholesterol 46 mg/dL (40-60); Triglyceride 114 mg/dL (<150)
[2023-03-16 20:02] LABS: PSA, Screening 0.5 ng/mL (<=4.5)
== END 2023-03-15 04:44 | disposition home or self-care (01) ==
PROVIDERS: PCP Family Medicine; Visit Provider Family Medicine
DX: I10 Essential (primary) hypertension (principal); E78.5 Hyperlipidemia, unspecified; Z12.5 Encounter for screening for malignant neoplasm of prostate
CPT/HCPCS: 36415; 80061; 84153; 82565; 84132

== ENCOUNTER 2023-03-22 00:46 | Outpatient (CLI) | payer MEDICAID, SELFPAY ==
--- NOTE | 2023-03-22 08:30 | DI.RAD_ITS ---
Exam(s) XR KNEE RT 3V AP,LAT,VIVIAN EXAM: XR KNEE RT 3V AP,LAT,VIVIAN CLINICAL HISTORY: anurag knee pain, M25.561, M25.562. TECHNIQUE: 2D digital imaging was performed. Three views. COMPARISON: CR RIGHT KNEE 3 VIEWS from 01/23/2011 FINDINGS: BONES: No acute fracture is present. No bony destructive lesion is seen. Enthesophyte at quadriceps insertion on the patella. JOINTS: The knee is normally aligned. No joint effusion is seen. The joint spaces are maintained. SOFT TISSUE: Mild vascular calcifications. IMPRESSION: No acute abnormality DATA REPOSITORY: RADIATION DOSE DELIVERED:
--- NOTE | 2023-03-22 08:30 | DI.RAD_ITS ---
Exam(s) XR KNEE LT 3V AP,LAT,VIVIAN EXAM: XR KNEE LT 3V AP,LAT,VIVIAN CLINICAL HISTORY: knee pain BOYD, M25.561, M25.562. TECHNIQUE: 2D digital imaging was performed. Three views. COMPARISON: None FINDINGS: BONES: No acute fracture is present. No bony destructive lesion is seen. JOINTS: Moderate to severe narrowing of the medial femoral tibial joint space with mild periarticular spurring. Mild spurring at the tibial spines and femoral intercondylar notch. Minimal patellar spu rring. A small joint effusion is seen. SOFT TISSUE: Normal. 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 Small joint effusion. DATA REPOSITORY: RADIATION DOSE DELIVERED:
== END 2023-03-22 01:06 ==
LOC: DI 00:46
PROVIDERS: PCP Family Medicine; Visit Provider Family Medicine
DX: M25.561 Pain in right knee (principal); M17.12 Unilateral primary osteoarthritis, left knee
CPT/HCPCS: 73562

== ENCOUNTER → 2023-07-02 02:37 | Outpatient (CLI) | payer MEDICAID, SELFPAY ==
--- NOTE | 2023-07-02 07:00 | DI.MRI_ITS ---
Exam(s) MR LOWER JOINT RT WO EXAM: MR LOWER JOINT RT WO CLINICAL HISTORY: rt knee pain,m25.561. TECHNIQUE: Multiplanar multisequence MRI was performed. COMPARISON: CR XR KNEE LT 3V AP,LAT,VIVIAN from 03/22/2023 CR XR KNEE RT 3V AP,LAT,VIVIAN from 03/22/2023 FINDINGS: BONES: There is no fracture or contusion pattern. Degenerative signal changes in medial aspect of m edial tibial plateau. JOINTS: A small joint effusion is present. Articular cartilage: Patellofemoral joint: Articular cartilage is unremarkable. Medial femoral tibial joint: Mild cartilage thinning. No focal defect. Lateral femoral tibial joint: Articular cartilage is unremarkable. TENDONS: Extensor mechanism: Unremarkable. Enthesophyte upper pole of the patella. Medial retinaculum: Unremarkable. Lateral retinaculum: Unremarkable. Popliteus: Unremarkable. MUSCLES: Unremarkable. MENISCI: The medial meniscus is diminutive and peripherally displaced consistent with degenerative c hanges. The body and posterior horn show abnormal degenerative increased signal changes.. The later al meniscus is unremarkable. SOFT TISSUES: Small bilobed Benson's cyst. LIGAMENTS: Anterior Cruciate: Unremarkable. Posterior Cruciate: Unremarkable. Medial Collateral:Unremarkable. Lateral Collateral: Unremarkable. IMPRESSION: Degenerative changes of the medial meniscus. Small joint effusion. Small Benson's cyst. DATA REPOSITORY:
== END ==
PROVIDERS: PCP Family Medicine; Visit Provider Family Medicine
DX: M17.11 Unilateral primary osteoarthritis, right knee (principal)
CPT/HCPCS: 73721

== ENCOUNTER 2023-08-25 10:26 | Day surgery (SDC) | payer MEDICAID, SELFPAY ==
[2023-08-25] VITALS (8 sets, daily range): BP systolic 114–157; BP diastolic 66–81; PULSE 58–72; RESP 14–20; TEMP 36.5–36.7; O2SAT 96–100; BMI 28.6
--- NOTE | 2023-08-25 10:45 | W.ANESPRE ---
General Info Date of Service Date Performed: 08/25/23 Height: 5 ft 9 in Weight: 87.997 kg Body Mass Index (BMI): 28.6 Surgical Procedure: Operation Date: 08/25/23 12:40 Proposed Procedure Side Surgeon p Knee Arthroscopy Right Paul Khoury MD Meds Allergies and Home Medications Allergies Allergy/AdvReac Type Severity Reaction Status Date / Time oxycodone AdvReac Intermediate ITCHING Verified 08/25/23 10:39 Home Medication Medication Instructions Recorded blood-glucose meter (OneTouch #1 ea 03/10/19 Ultra2 Meter kit) lancets 33 gauge (OneTouch Delica #100 ea 03/10/19 Lancets) blood sugar diagnostic #100 ea 12/12/21 metformin 500 mg tablet 1,000 mg (2 x 500 mg) PO BID #360 11/25/22 tabs amlodipine 5 mg tablet (Norvasc) 10 mg (2 x 5 mg) PO QAM #180 12/14/22 tab-caps hydrochlorothiazide 12.5 mg tablet 6.25 mg (1/2 x 12.5 mg) PO DAILY 01/05/23 #45 tabs benazepril 20 mg tablet (Lotensin) 20 mg PO QAM #90 tab-caps 03/10/23 gabapentin 600 mg tablet 600 mg PO TID #90 tabs 03/10/23 atorvastatin 40 mg tablet 40 mg PO QHS #90 tabs 06/28/23 ibuprofen 200 mg tablet (IBU-200) 200 mg PO ONCE 08/25/23 tadalafil 20 mg tablet mg 08/25/23 Current Visit Medications: Current Medications Generic Name Dose Route Start Last Admin Trade Name Freq PRN Reason Stop Dose Admin Ringer's Solution 1,000 mls @ 80 mls/hr 08/25/23 06:00 IV 08/25/23 23:59 INFUSION AKI Cefazolin Sodium/Dextrose 2 gm in 50 mls @ 100 mls/hr 08/25/23 06:00 Ancef Duplex IVPB 08/25/23 23:59 PREOP AKI IV Miscellaneous Supplies 1 each 08/25/23 06:00 Iv Access IV 08/25/23 23:59 DIRECTED AKI Sodium Chloride 0 ml 08/25/23 06:00 Normal Saline Flush 10 Ml Syr IV 08/25/23 23:59 PRN PRN Sodium Chloride 0 ml 08/25/23 06:00 Normal Saline 10 Ml Vial IJ 08/25/23 23:59 DIRECTED PRN Sterile Water 0 ml 08/25/23 06:00 Water,Injection,Sterile 10 Ml Vial IJ 08/25/23 23:59 DIRECTED PRN PFSH Active Problems Active Problems: Problem Status Onset Code Bone marrow edema R93.7 Tear of medial meniscus of right knee S83.241A Pain, joint, knee, right M25.561 Bilateral knee pain M25.561, M25.562 At risk for coronary artery disease Z91.89 Normal colonoscopy Polyp of colon K63.5 History of tobacco use Z87.891 History of alcohol abuse Z87.898 Abnormal LFTs R94.5 Type 2 diabetes mellitus E11.9 Screening for colon cancer Z12.11 Medical History Medical History Acute meniscal tear, lateral left Arthritis of left acromioclavicular joint Biceps tendonitis on left Chronic diffuse otitis externa of both ears (05/28/17) Coccyx pain Color vision deficiency Erectile dysfunction Essential hypertension Hyperlipemia Impingement syndrome of left shoulder Left shoulder pain Neck pain Nevus, non-neoplastic Oral mucosal lesion Paresthesia of both feet Prostatitis Tongue lesion Traumatic rupture of biceps tendon s/p repair (right) Surgical History Surgical History Colonoscopy - MAC 03/202201/29/12 H/O colonoscopy Hx of neck surgery triple fusion c5, c6,c7. LEFT KNEE SURGERY MUSCLE REATTACHMENT repair of severed right biceps Repair of inguinal hernia Status post inguinal hernia repair Status post knee surgery Tobacco Smoking/Tobacco Use Status: Current every day Tobacco Type: smokeless tobacco Smokeless tobacco user: chewing tobacco Second hand exposure: Yes Alcohol Alcohol Intake: former Substance Use Substance use: Never Substance use type: does not use Vital Signs and Lab Results Vital Signs Most Recent Vital Signs in EMR: Temp Pulse Resp BP Pulse Ox 36.5 C 72 18 120/78 96 08/25/23 11:00 08/25/23 11:00 08/25/23 11:00 08/25/23 11:00 08/25/23 11:00 Point of Care Results Point of Care Results: Finger Stick Blood Glucose 117 01/03/24 10:36 Lab Results Blood Type / Crossmatch: No Data to Display Complete Blood Count: No Data to Display Complete Metabolic Panel: No Data to Display Liver Function Panel: No Data to Display Coagulation Panel: No Data to Display Cardiac Panel: No Data to Display Arterial Blood Gas: No Data to Display Venous Blood Gas: No Data to Display Pancreas Panel: No Data to Display Thyroid Panel: No Data to Display Infectious Disease: No Data to Display Blood Cultures: No Data to Display Toxicology Panel: No Data to Display Imaging and Studies Imaging and Studies Study information below may be from another EMR and interpreted by another provider. Please see original notes in EMR for more complete details. EKG Summary: 2020: sinus. Anesthesia Assessment and Plan Anesthesia History Personal History: No History of Anesthesia Complications Family History: No Family History of Anesthesia Complications Exercise Tolerance Exercise Tolerance: Metabolic Equivalents>4 Cardiac & Pulmonary Exam Cardiac Exam: Normal S1/S2 Heart Sounds Pulmonary Exam: Clear Bilateral Breath Sounds Implantable Cardiac Device Does patient have a Pacemaker or an ICD?: No Airway Exam Known Difficult Airway: No Mallampati Class: 2 Mouth Opening: Normal (> 3cm) Thyromental Distance: Greater than 3 cm Neck Range of Motion: Limited ROM Neck Circumference: Normal Teeth Condition: Normal Dentition ASA Classification ASA Score: ASA 2 Emergency Case?: No NPO Status NPO Status: NPO Clears >2 hours, Solids >8 hours Anesthesia Plan Resuscitation Status: Full Code Anesthesia Technique: Spinal Anesthesia Airway Planned: Natural Airway Monitors Used: Standard Monitors Preoperative Comments:: 61 yo male for knee scope. Sig PMHx: HTN (HCTZ, benazepril, norvasc), C5-6-7 discectomy/fusion (still occasionally numb with right hand), former smoker/current smokeless tobacco, DM2 (metformin, 03/14 A1c 6.2). Previous Anes: - colo, prop, natural airway, no issues. He would like spinal.
[2023-08-25] MEDS: Lactated Ringers 1,000 ML 80 ML IV (11:43)
[2023-08-25] MEDS: ceFAZolin 2 GM/50 ML BAG IVPB (12:36)
--- NOTE | 2023-08-25 12:36 | HPE_ITS ---
Assessment and Plan Assessment and plan (1) Tear of medial meniscus of right knee: Status: Acute Assessment and plan: Javy is a 62-year-old active male who has a meniscal tear about the knee. There are some early arthritic changes as well. I was very honest with a ride that his symptoms may be coming mostly from the arthritis although a portion of these are truly mechanical such as when he turns or twists or when he goes from a flexed to extended position with the knee locking. It is likely that those symptoms will improve with some of the pain that has about the knee may not improve and it is possible to be gets worse requiring further interventions in the future, treating this mostly has arthritis. Despite this discussion, he still elects to proceed with arthroscopic intervention with likely partial medial meniscectomy. I reviewed the procedure with him. I discussed the risk to include bleeding, infection, pain, stiffness, worsening arthritis, need for procedures, blood clot. Despite these risk, he elects to proceed. History of Present Illness Narrative: Nadeem is a 62-year-old active male who continues have some pain about the right knee. He has had MRI which proves meniscus tear of the knee meniscus and likely the lateral meniscus. There is some cartilage thinning about the medial compartment as well as some bone marrow edema. However, the bulk of his symptoms are still somewhat mechanical. Therefore, I offered arthroscopic meniscal intervention. He is here today for that procedure. Denies any changes to his health. No recent illness. Review of Systems All systems reviewed & are unremarkable except as noted in HPI and below PFSH All Active Problems Bone marrow edema (Acute) Right knee Tear of medial meniscus of right knee (Acute) Pain, joint, knee, right (Acute) Bilateral knee pain (Acute) At risk for coronary artery disease (Acute) Normal colonoscopy (Acute) Polyp of colon (Chronic) History of tobacco use (Chronic) History of alcohol abuse (Chronic) Abnormal LFTs (Chronic) Type 2 diabetes mellitus (Chronic) Screening for colon cancer (Acute) Medical History Erectile dysfunction Coccyx pain Oral mucosal lesion Neck pain Tongue lesion Arthritis of left acromioclavicular joint Biceps tendonitis on left Impingement syndrome of left shoulder Left shoulder pain Paresthesia of both feet Essential hypertension Prostatitis Acute meniscal tear, lateral left Chronic diffuse otitis externa of both ears (05/28/17) Color vision deficiency Hyperlipemia Nevus, non-neoplastic Traumatic rupture of biceps tendon s/p repair (right) Surgical History Hx of neck surgery triple fusion c5, c6,c7. Status post inguinal hernia repair Status post knee surgery H/O colonoscopy MUSCLE REATTACHMENT repair of severed right biceps LEFT KNEE SURGERY Repair of inguinal hernia Colonoscopy - MAC 03/202201/29/12 Family History Mother Essential hypertension Diabetes Liver cancer Father , 75 Heart disease Paternal Grandfather Diabetes Sister Diabetes Social History Smoking/Tobacco Use Status: Current every day Tobacco Type: smokeless tobacco Tobacco: How many years used: 10 Smokeless tobacco user: chewing tobacco Quit status: considering quitting Second Hand Exposure: Yes Smoking risk assessment performed?: Yes Alcohol Intake: former Drug use: Never Substance use type: does not use Details: smokeless tobacco used 08/24/23 at 2300. Household members: significant other Housing: house Communication Needs: Corrective Lenses Pets and animals: No Sexually active: Yes Do you think of yourself as: straight/heterosexual Current gender identity: male What is your relationship status?: living with partner How often do you talk on the phone with friends or family?: three or more times per week How often do you get together with friends or relatives?: three or more times per week How often do you attend restorationism or mu-ism services?: decline to answer Do you belong to any clubs or organized social groups?: decline to answer Panel score (0-1 are the most socially isolated patients): 2 What type of physical activity do you participate in: none Do you feel safe at home: Yes Do you feel safe in your relationship?: Yes Meds Allergies and Home Medications Allergies Allergy/AdvReac Type Severity Reaction Status Date / Time oxycodone AdvReac Intermediate ITCHING Verified 08/25/23 10:39 Home Medications Medication Instructions Recorded Confirmed Type blood-glucose meter (OneTouch #1 ea 03/10/19 08/25/23 Rx Ultra2 Meter kit) lancets 33 gauge (OneTouch Delica #100 ea 03/10/19 08/25/23 Rx Lancets) blood sugar diagnostic #100 ea 12/12/21 08/25/23 Rx metformin 500 mg tablet 1,000 mg (2 x 500 mg) PO BID #360 11/25/22 08/25/23 Rx tabs amlodipine 5 mg tablet (Norvasc) 10 mg (2 x 5 mg) PO QAM #180 12/14/22 08/25/23 Rx tab-caps hydrochlorothiazide 12.5 mg tablet 6.25 mg (1/2 x 12.5 mg) PO DAILY 01/05/23 08/25/23 Rx #45 tabs benazepril 20 mg tablet (Lotensin) 20 mg PO QAM #90 tab-caps 03/10/23 08/25/23 Rx gabapentin 600 mg tablet 600 mg PO TID #90 tabs 03/10/23 08/25/23 Rx atorvastatin 40 mg tablet 40 mg PO QHS #90 tabs 06/28/23 08/25/23 Rx ibuprofen 200 mg tablet (IBU-200) 200 mg PO ONCE 08/25/23 08/25/23 History tadalafil 20 mg tablet mg 08/25/23 History Exam Resp Effort & Inspection: normal respiratory effort Auscultation: clear to auscultation bilaterally Cardio Rate: regular rate Rhythm: regular rhythm Results Imaging Imaging Studies: MRI was once again reviewed which shows a complex tear about the medial meniscus with loose fragments posteriorly and medially. There is some thinning of the cartilage about the medial most aspect of the medial compartment with some bone marrow edema. Small osteophyte seen. Otherwise, there is cartilage throughout the knee. There is somewhat linear signal seen in a horizontal fashion about the lateral meniscus which may represent some nondisplaced tearing. Last Vital Signs Temp 36.5 C 08/25/23 11:00 Pulse 72 08/25/23 11:00 Resp 18 08/25/23 11:00 BP 120/78 08/25/23 11:00 Pulse Ox 96 08/25/23 11:00
--- NOTE | 2023-08-25 13:12 | PDOC.DSDIS_ITS ---
Date of service: 08/25/23 Time of Service: 13:12 Discharge Plan Disposition Patient Disposition: Home Condition: Good Discharge Details Reason For Visit: R knee arthroscopy Attending Provider: Paul Khoury Primary Care Provider: Constantin Nair Home Meds and New Rx's Prescriptions: New hydrocodone-acetaminophen 5-325 mg tablet 1 tab PO Q6H PRN (Reason: pain) Qty: 6 0RF acetaminophen 500 mg tablet 1,000 mg PO TID Qty: 90 0RF ibuprofen 600 mg tablet 600 mg PO TID PRN (Reason: pain) Qty: 90 0RF Continued (DME) blood-glucose meter [Watcher EnterprisesTouch Ultra2 Meter] Kit See Rx Instructions .ROUTE .MEDSUPPLY Qty: 1 0RF Rx Instructions: Use daily to check blood sugar (DME) lancets [OneTouch Delica Lancets] 33 gauge misc See Rx Instructions .ROUTE DAILY Qty: 100 4RF Rx Instructions: One each daily (DME) blood sugar diagnostic Strip See Rx Instructions .ROUTE .MEDSUPPLY Qty: 100 4RF Rx Instructions: test once/day metformin 500 mg tablet 1,000 mg PO BID Qty: 360 3RF amlodipine [Norvasc] 5 mg tablet 10 mg PO QAM Qty: 180 3RF Rx Instructions: dose increase 09/23/2021 hydrochlorothiazide 12.5 mg tablet 6.25 mg PO DAILY Qty: 45 3RF gabapentin 600 mg tablet 600 mg PO TID Qty: 90 5RF benazepril [Lotensin] 20 mg tablet 20 mg PO QAM Qty: 90 3RF atorvastatin 40 mg tablet 40 mg PO QHS Qty: 90 3RF tadalafil 20 mg tablet Patient Comments: TAKE 1 TABLET BY MOUTH ONCE DAILY FOR SEXUAL ACTIVITY ADMINSTER 30 MIN BEFORE SEXUAL ACTIVITY MAXIMUM DAILY DOSE = 1 TABLET Discontinued ibuprofen [IBU-200] 200 mg tablet 200 mg PO ONCE Discharge Instructions Stand Alone Forms: [facility] Knee Arthroscopy Referrals: Paul Khoury MD [ [facility] STAFF PHYSICIAN] - Equipment/Supplies: Partial Weight Bearing Crutches Activity:: Activity as Tolerated Remove Dressings/Wound Care:: 72 hours Shower/Bathe:: 72 hours Diet:: As Tolerated Discharge Orders Discharge Orders: Discharge Order (Routine); Ordered 01/03/24 Ordered By: Higinio Kruger DS: Diagnosis Discharge Diagnosis (1) Tear of medial meniscus of right knee: Status: Acute
[2023-08-25] MEDS: Bupivacaine 0.5% Pres-Free 30 ML VIAL (13:16)
[2023-08-25] MEDS: EPINEPHrine 10 MG/10 ML ML (13:26)
--- NOTE | 2023-08-25 13:43 | W.ANESPOSTOP ---
Postoperative Evaluation Date, Time and Location Date Performed: 08/25/23 Time Performed: 13:43 Patient Location: PACU Vital Signs Most Recent Imported Vital Signs: Most Recent Vital Signs Temp Pulse Resp BP Pulse Ox 36.7 C 66 20 114/66 100 08/25/23 13:23 08/25/23 13:23 08/25/23 13:23 08/25/23 13:23 08/25/23 13:23 Pain Score Most Recent Pain Score: Most Recent Pain Score Pain Level 0 08/25/23 13:23 Assessment Mental Status: Awake (Alert & Oriented to Patient Baseline) Airway and Respiratory Function: Patent airway with normal (patient baseline) respiratory exam Cardiovascular Function: Hemodynamically Stable Hydration Status: Adequately Hydrated Nausea & Vomiting: No Nausea or Vomiting Pain: Pt. Denies Any Pain Peripheral Nerve Block: Patient did not receive a nerve block Postoperative Comments:: spinal still in slight effect.
--- NOTE | 2023-08-25 13:56 | ROE_ITS ---
Date of service: 08/25/23 Time of Service: 13:00 Operative Note Operative Note DATE OF PROCEDURE: 08/25/23 PRE-OP DIAGNOSIS: Right Knee Medial Meniscus Tear POST-OP DIAGNOSIS: same PROCEDURE: Right knee arthroscopic partial medial meniscectomy SURGEON: Paul Khoury ANESTHESIA TYPE: Spinal Refer to Anesthesia Record ESTIMATED BLOOD LOSS: 0 PATHOLOGY: none sent COMPLICATIONS: None Patient was transported to: PACU Patient's condition: stable Indications: I have seen Javy in clinic for symptoms of a knee pain and meniscus tear. This was confirmed based on MRI and exam findings. Nonoperative measures were exhausted but disability and pain persisted. I discussed knee arthroscopy with meniscal intervention with the patient. I reviewed the risks of the procedure to include, but not limited to, bleeding, infection, pain, stiffness, damage to nerves or vessels, recurrence, blood clot. Despite these risks, the patient elected to proceed. Findings: A diagnostic arthroscopy was performed with the following findings: Suprapatellar Pouch: No significant inflammation, No loose bodies Medial Compartment: Complex medial meniscal tear with multiple displaced fragments, Intact meniscal root, grade III/IV chondromalacia over the central?medial aspect of the medial tibia with minimal change management lead the medial femur, No loose bodies Notch: ACL and PCL were intact Lateral Compartment: No meniscal tear, Intact meniscal root, there is a fissure which was nearly full-thickness running from anterior to posterior down the midline of the lateral tibial plateau, no femoral changes, No loose bodies Patellofemoral Compartment: Grade II chondromalacia, No apparent patellar maltracking Procedure Description: Javy was greeted in the preoperative holding area where the correct side was identified and marked. The consent was reviewed with the patient and signed. The history and physical was updated. All questions were answered. He was taken back to the operating room. The patient was placed into the supine position on the operating room table. A nonsterile tourniquet was placed high onto the leg but not used. All bony prominences were well padded. Prophylactic antibiotics in the form of Cefazolin were administered. The right leg was then prepped with Chloraprep and draped in a standard fashion with stockinette and extremity drape. A timeout to confirm correct identity, side and site, procedure, allergies, anesthesia, and medical concerns was performed. The leg was placed into a pneumatic leg robison, [id number]. A standard lateral portal was made at the lateral border of the patella tendon in line with the inferior pole of the patella, soft spot. The skin and deep tissue was incised sharply and the blunt trochar was inserted atraumatically. A diagnostic arthroscopy was performed and the findings are listed above. The suprapatellar pouch had no significant inflammatory change. The patellofemoral articulation showed grade II chondromalacia as well as good tracking. The lateral gutter had no loose bodies and the medial gutter had no loose bodies. The knee was brought into some valgus stress in extension to open the medial compartment. A medial portal was made, localized by a spinal needle. The portal was created with an #11 blade through skin and capsule under direct visualization avoiding any meniscal injury. A probe was then inserted into the medial compartment. The medial compartment was fully inspected. The chondral surface of the tibia showed grade III/IV chondromalacia over the central?medial aspect of the medial tibia and the surface of the femur showed no significant chondromalacia. The m edial meniscus had a complex tear extending from the mid body all the way through towards the posterior root with multiple displaced fragments. The root was intact. There is a radial component within the posterior horn and complex tearing with multiple loose fragments seen posterior to the femur.. After evaluation, the meniscus was debrided down to a stable base using a series of biters and arthroscopic sachi. It was probed afterwards to confirm that the tear had been removed and the meniscus was stable. The notch was then inspected which showed an intact ACL and an intact PCL. The leg was then brought into a figure of 4 position. The lateral compartment was fully inspected with the arthroscope and a probe. The chondral surface of the lateral femur showed no significant chondromalacia. The chondral surface of the lateral tibia showed a nearly full depth fissure running from anterior to posterior midportion of the lateral tibia. The lateral meniscus had no meniscal tear. The arthroscope was brought back into the suprapatellar pouch and the leg was in full extension. The knee was thoroughly irrigated with the arthroscopic fluid on high flow and pressure. Inflow was stopped and excess fluid was removed. The wounds were closed with 4-0 Nylon. They were dressed with Xeroform, 4x4 gauze, ABD pad, Kerlix and an SUKUMAR wrap. A cryo-cuff was applied. The patient tolerated the procedure well and was returned to the Same Day Surgery area in a stable condition suffering no known complication.
== END 2023-08-25 15:15 | disposition home or self-care (01) ==
PROVIDERS: PCP Family Medicine; Visit Provider Student in an Organized Health Care Education/Training Program
PROC: (CPT 29870; principal; 2023-08-25 12:30)
DX: S83.241A Other tear of medial meniscus, current injury, right knee, initial encounter (principal); E11.9 Type 2 diabetes mellitus without complications; M94.261 Chondromalacia, right knee; X58.XXXA Exposure to other specified factors, initial encounter
CPT/HCPCS: 29881; J0665; J0690; J1100; J1885; J2001; J2401; J2405; J2704

== ENCOUNTER → 2023-12-21 10:31 | Outpatient (CLI) | payer MEDICAID, SELFPAY ==
--- NOTE | 2023-12-21 09:00 | DI.MRI_ITS ---
Exam(s) MR LOWER JOINT RT WO EXAM: MR LOWER JOINT RT WO CLINICAL HISTORY: PAIN,INTERNAL DERANGMENT OF R KNEE M23.91. TECHNIQUE: Multiplanar multisequence MRI was performed. COMPARISON: CR XR KNEE RT 3V AP,LAT,VIVIAN from 03/22/2023 CR XR KNEE LT 3V AP,LAT,VIVIAN from 03/22/2023 MR MR LOWER JOINT RT WO from 07/02/2023 FINDINGS: BONES: There is no fracture or contusion pattern. Degenerative signal changes in the medial tibial pl ateau. JOINTS: A moderate-sized joint effusion is present. Articular cartilage: Patellofemoral joint: Small linear defects in both medial and lateral facets no t extending down to bone. Medial femoral tibial joint: There is a small focal defect medial femoral condyle. This appears new when compared the prior exam. Cartilage thinning down to bone at the medial tibial plateau. This ap pears to have worsened when compared the prior exam. Lateral femoral tibial joint: Articular cartilage is unremarkable. TENDONS: Extensor mechanism: Enthesophyte upper pole of the patella. Medial retinaculum: Unremarkable. Lateral retinaculum: Unremarkable. Popliteus: Unremarkable. MUSCLES: Unremarkable. MENISCI: The medial meniscus is diminutive which could be related to post meniscectomy changes severe degenera tive changes. Findings appear unchanged from prior. No displaced fragments The lateral meniscus is unremarkable. SOFT TISSUES: Mild anterior edema. Small Benson's cyst. LIGAMENTS: Anterior Cruciate: Unremarkable. Posterior Cruciate: Unremarkable. Medial Collateral:Unremarkable. Lateral Collateral: Unremarkable. IMPRESSION: Degenerative changes of the medial femoral tibial joint with for focal cartilage defect extending diana n to bone. Stable appearance of the medial meniscus with diminutive posterior horn and body. DATA REPOSITORY:
== END ==
PROVIDERS: PCP Family Medicine; Visit Provider Student in an Organized Health Care Education/Training Program
DX: M17.11 Unilateral primary osteoarthritis, right knee (principal)
CPT/HCPCS: 73721

== ENCOUNTER 2024-04-03 14:10 | Outpatient (CLI) | payer MEDICAID, SELFPAY ==
[2024-04-03 17:47] LABS: Calculated LDL 36 mg/dL (<100); Cholesterol 117 mg/dL (<200); Estimated GFR 84.05 (mL/min/1.73m2); HDL Cholesterol 40 mg/dL (40-60); Potassium 4.1 mmol/L (3.5-5.1); Triglyceride 208 mg/dL (<150)
[2024-04-03 18:46] LABS: Hemoglobin A1C 6.7 % (<5.7)
== END 2024-04-03 14:11 | disposition home or self-care (01) ==
PROVIDERS: PCP Family Medicine; Visit Provider Family Medicine
DX: I10 Essential (primary) hypertension (principal); E78.5 Hyperlipidemia, unspecified; E11.51 Type 2 diabetes mellitus with diabetic peripheral angiopathy without gangrene
CPT/HCPCS: 36415; 80061; 82565; 83036; 84132

== ENCOUNTER 2024-04-06 21:08 | Outpatient (REF) | payer MEDICAID, SELFPAY ==
[2024-04-06 21:47] LABS: COMMENT (LAB VIEW ONLY) 151.07 mg/dL; Microalb ug/mg Crea 7.8 ug/mg Cr
== END 2024-04-06 21:09 | disposition home or self-care (01) ==
LOC: LBN 21:08
PROVIDERS: PCP Family Medicine; Visit Provider Family Medicine
DX: E11.9 Type 2 diabetes mellitus without complications (principal)
CPT/HCPCS: 82043; 82570

== ENCOUNTER 2025-04-12 10:15 | Outpatient (CLI) | payer MEDICARE, SELFPAY ==
[2025-04-12 13:27] LABS: Anion Gap 10.5 mmol/L (3-11); BUN 14 mg/dL (7-18); CO2 29.5 mmol/L (21.0-32.0); Calcium 9.2 mg/dL (8.5-10.1); Calculated LDL 47 mg/dL (<100); Chloride 100 mmol/L (98-107); Cholesterol 125 mg/dL (<200); Estimated GFR 98.21 (mL/min/1.73m2); Glucose 124 mg/dL (74-106); HDL Cholesterol 39 mg/dL (>or=40); Potassium 3.6 mmol/L (3.5-5.1); Sodium 140 mmol/L (136-145); Triglyceride 197 mg/dL (<150)
[2025-04-12 19:28] LABS: PSA, Screening 0.6 ng/mL (<=4.5)
== END 2025-04-12 10:16 | disposition home or self-care (01) ==
LOC: LOS 10:15
PROVIDERS: PCP Family Medicine; Referring Provider Family Medicine; Visit Provider Family Medicine
DX: E87.1 Hypo-osmolality and hyponatremia (principal); E78.5 Hyperlipidemia, unspecified; Z13.220 Encounter for screening for lipoid disorders; Z12.5 Encounter for screening for malignant neoplasm of prostate
CPT/HCPCS: 36415; 80048; 80061; 84153